=== PATIENT | male | born 1975 | race Caucasian/White ===

== ENCOUNTER 2022-02-15 06:50 | Outpatient (CLI) | payer BC ==
[~2022-02-15] VITALS: Ht 177.8 cm; Wt 93.0 kg
[~2022-02-15 06:50] MED LIST: ACHD5005 PO; ADAL40PE SQ; BACL10TA; HYDR-3720; LISI10TA25 PO; METR500T PO; SERT-414 PO
[2022-02-15] MEDS ORDERED: ORPH100T PO (08:28)
[2022-02-15] MEDS ORDERED: NAPR-1070 PO (08:28)
[2022-02-16] MEDS ORDERED: OMEP20CA18 PO (12:10)
== END 2022-02-15 12:24 | disposition home or self-care (01) ==
LOC: PREOP 06:50
PROVIDERS: ATTEND Internal Medicine
DX: Z01.818 Encounter for other preprocedural examination (principal)

== ENCOUNTER 2022-02-16 09:48 | Day surgery (SDC) | payer BC ==
[~2022-02-16] VITALS: Ht 177 cm; Wt 93.0 kg
--- NOTE | 2022-02-16 08:36 | HISTORY AND PHYSICAL ---
DATE OF SERVICE: PANENDOSCOPY SUMMARY HISTORY OF PRESENT ILLNESS: The patient is a 46-year-old white male who was undergoing medication monitoring for Humira for underlying ankylosing spondylitis and was noted to have a 2 gram drop in his hemoglobin. His MCV was also to low end of normal range, which was a decrease for him at 80. Other labs were stable and unremarkable. He was brought in specifically to discuss this and the high likelihood of this representing iron deficiency from blood loss. He reports that he has been having intermittent bright red blood per rectum, sometimes large volume without the passage of clots. He denies any rectal pain or abdominal pain with this. He also has been taking more Naprosyn and reports that he has been having to take more antacid for burning sensation in the epigastric and lower precordial area. He denies dysphagia with no weight loss, weight was actually up 4 pounds. He reports that his spondyloarthropathy has been under good control on Humira and Naprosyn combination. PHYSICAL EXAMINATION: GENERAL: Reveals a white male, mild pallor, compared to baseline. VITAL SIGNS: Blood pressure 136/90, weight 205.8. CHEST: Clear to auscultation. CARDIOVASCULAR: Revealed a regular rate and rhythm without murmur, S3 or S4. ABDOMEN: Soft, supple without mass, organomegaly or tenderness. EXTREMITIES: Reveal no cyanosis, clubbing or edema. ASSESSMENT: The patient was set up for panendoscopy due to increasing reflux symptoms and bright red blood per rectum with likely iron deficiency anemia. Prep instructions were given, and questions were answered. Job ID: [id number] DocumentID: [id number] Dictated Date: 02/14/2022 16:55:39 Medical Oncology Physician Date: 02/14/2022 17:15:30 Dictated By: BILL ALVARADO MD [facility]
[~2022-02-16 09:48] MED LIST changes: +NAPR-1070 PO; +ORPH100T PO
[2022-02-16] MEDS ORDERED: LACTATED RINGERS 1,000 ML IV STA (10:05)
[2022-02-16 10:10] VITALS: BP 203/120
[2022-02-16 10:11] VITALS: BP 192/113
[2022-02-16] MEDS ORDERED: HURRICAINE EXT TUBE (BENZOCAINE) XX PRN (10:15)
--- NOTE | 2022-02-16 10:37 | Pre-Op Note & Conscious Sedat ---
Pre-Operative Progress Note H&P Reviewed The H&P was reviewed, patient examined and no changes noted. Date H&P Reviewed: February 16, 2022 Time H&P Reviewed: 10:36 Conscious Sedation Pre-Proced ASA Score 2 For ASA 3 and 4: Consider anesthesia and medical clearance. Also, for patients with a history of failed moderate sedation consider anesthesia. Airway Lungs Heart ASA score ASA 1: a normal healthy patient ASA 2: a patient with a mild systemic disease (mid diabetes, controlled hypertension, obesity ASA 3: a patient with a severe systemic disease that limits activity (angina, COPD, prior Myocardial infarction) ASA 4: a patient with an incapacitating disease that is a constant threat to life (CHF, renal failure) ASA 5: a moribund patient not expected to survive 24 hrs. (ruptured aneurysm) ASA 6: a declared brain- patient whose organs are being harvested. For emergent operations, add the letter E after the classification Mallampati Classification Grade 2 Sedation Plan Analgesia, Amnesia, Plan communicated to team members, Discussed options with patient/fam, Discussed risks with patient/fam The patient is an appropriate candidate to undergo the planned procedure, sedation, and anesthesia. The patient immediately re-assessed prior to indication. BILL ALVARADO MD February 16, 2022 10:37
[2022-02-16] MEDS ORDERED: MIDAZOLAM 2 MG/2 ML (VERSED) VIAL ONE (11:10)
[2022-02-16] MEDS ORDERED: PROPOFOL INJECTION 50 ML IV ONE (11:10)
[2022-02-16] MEDS ORDERED: proPOfol 200 MG/20 ML (DIPRIVAN) VIAL IV ONE (11:38)
[2022-02-16 12:05] VITALS: BP 160/93
[2022-02-16] MEDS ORDERED: OMEP20CA18 PO (12:10)
--- NOTE | 2022-02-16 12:11 | Anesthesia-General Post-Op ---
MAC Patient Condition Mental Status/LOC: Same as Preop Cardiovascular: Satisfactory Nausea/Vomiting: Absent Respiratory: Satisfactory Pain: Controlled Complications: Absent Post Op Complications Complications None Follow Up Care/Instructions Patient Instructions None needed. Anesthesiology Discharge Order Discharge Order Patient is doing well, no complaints, stable vital signs, no apparent adverse anesthesia problems. No complications reported per nursing. ABDELRAHMAN CHOWDHURY DO February 16, 2022 12:11
[2022-02-16 12:30] VITALS: BP 172/102
--- NOTE | 2022-02-16 16:49 | OPERATIVE REPORT ---
DATE OF SERVICE: PANENDOSCOPY SUMMARY INDICATION FOR THE PROCEDURE: Panendoscopy was performed for new onset iron deficiency anemia. The patient was due for screening colonoscopy as well. Risk factors for upper tract ulceration include chronic Naprosyn use for ankylosing spondylitis. DESCRIPTION OF PROCEDURE: The patient was placed in the left lateral decubitus position. The endoscope was inserted in the oral cavity and under direct visualization, esophagus was intubated. Endoscope was passed down the esophagus through stomach and second portion of the duodenum. Careful inspection was made as the endoscope was withdrawn. FINDINGS: Posterior pharynx, epiglottis, true and false vocal folds and arytenoid aperture were unremarkable to visual inspection. The proximal, mid and distal esophagus were unremarkable. There is a small sliding hiatal hernia present without evidence for erosive esophagitis. The cardia and proximal and mid fundus were unremarkable. In the distal fundus and antrum, were patchy areas of erythema with little bit of stranding of dark blood. The area was lavaged with no evidence for ulceration with findings suggesting underlying nonsteroidal gastropathy. The pylorus, the pyloric channel was unremarkable. There was some patchy erythema in the duodenal bulb. The second portion of the duodenum was unremarkable. A biopsy from the antrum was obtained and submitted for histopathology and Helicobacter evaluation. ASSESSMENT: Findings suggesting underlying nonsteroidal gastropathy was noted with a small amount of blood, but no evidence for overt ulceration. Biopsy from the antrum is pending. We then proceeded with colonoscopy. Prior to doing colonoscopy, digital rectal evaluation was performed. Prostate is unremarkable to digital inspection. The patient does have likely combination of rectal prolapse as well as some grade III internal hemorrhoid complexes with findings of perianal irritation. The rectum was unremarkable. Small 2 to 3 mm sessile hyperplastic appearing polyps were removed from the proximal and mid sigmoid colon via hot forceps. There is no evidence for diverticular disease. The descending colon, splenic flexure, transverse colon, hepatic flexure, ascending colon, and cecum were unremarkable under good prep conditions. ASSESSMENT: Two hyperplastic appearing polyps were removed, one from the mid and the other one from the proximal sigmoid colon via hot forceps. There was no evidence for diverticular disease. There does appear to be a combination of rectal prolapse as well as significant internal hemorrhoid complexes, nonthrombosed. Digital evaluation of the prostate was unremarkable. Considering ongoing need for nonsteroidal therapy, we did initiate omeprazole 20 mg daily. Considering likely nonsteroidal gastropathy, suspected most likely cause of this patient's bleeding and less likely cause of this patient's iron deficiency anemia. He will continue to monitor blood counts and also monitor stool for evidence for melena. Job ID: [id number] DocumentID: [id number] Dictated Date: 02/16/2022 12:17:41 Member Certification Manager Date: 02/16/2022 16:48:55 Dictated By: BILL ALVARADO MD [facility]TDD
== END 2022-02-16 12:35 | disposition home or self-care (01) ==
LOC: ENDO 09:48
PROVIDERS: ATTEND Internal Medicine
DX: Z12.11 Encounter for screening for malignant neoplasm of colon (principal); K31.89 Other diseases of stomach and duodenum; K63.5 Polyp of colon; K64.2 Third degree hemorrhoids; D50.9 Iron deficiency anemia, unspecified; K44.9 Diaphragmatic hernia without obstruction or gangrene; M47.9 Spondylosis, unspecified; Z79.899 Other long term (current) drug therapy
CPT/HCPCS: 88305